=== PATIENT | male | born 1935 | race Caucasian/White ===

== ENCOUNTER 2018-10-04 13:23 | Emergency (ER) | payer MEDICARE ==
[~2018-10-04] VITALS: Ht 177.8 cm; Wt 77.1 kg
--- NOTE | 2018-10-04 13:40 | NUR ---
PT BIB [facility] D/T GLF AND LEFT ARM DEFORMITIES AND PAIN, NO KO, PT IS AOX4, NOT IN RESPIRATORY DISTRESS, V/S STABLE, KEPT RESTED AND COMFORTABLE, AWAITING ER MD PEÑA.
--- NOTE | 2018-10-04 13:46 | NUR ---
DR. SAL AT BEDSIDE FOR EVAL.
[2018-10-04] MEDS ORDERED: TDAP [DIPH/PERTUSSIS/TET] 0.5 ML VIAL IM ONE ×2 (13:55→14:00)
[2018-10-04] MEDS ORDERED: IV NS 0.9% 1,000 ML BAG IV ONE (14:00)
[2018-10-04 14:06] LABS: BASOPHILS # (AUTO) 0.1 /CMM (0.0-0.2); BASOPHILS % (AUTO) 1.1 % (0.0-2.0); EOSINOPHILS % (AUTO) 1.6 % (0.0-6.0); HEMATOCRIT 37 % (39-51); HEMOGLOBIN 11.9 g/dL (13.5-17.5); LYMPHOCYTES # (AUTO) 1.7 /CMM (0.8-4.8); MEAN CORPUSCULAR HGB CONC 32 g/dl (31.0-36.0); MEAN CORPUSCULAR VOLUME 84 fL (80-96); MONOCYTES # (AUTO) 0.6 /CMM (0.1-1.30); MONOCYTES % (AUTO) 5.8 % (2.0-12.0); NEUTROPHILS # (AUTO) 7.1 /CMM (1.8-8.9); NEUTROPHILS % (AUTO) 73.5 % (43.0-81.0); PLATELET COUNT (AUTO) 141 /CMM (150-450); RED BLOOD CELL COUNT(AUTO) 4.43 MIL/uL (4.5-6.0); WHITE BLOOD COUNT (AUTO) 9.7 K/uL (4.3-11.0)
[2018-10-04 14:19] LABS: CALCIUM, SERUM 8.6 mg/dL (8.5-10.1); CARBON DIOXIDE 27 mmol/L (21-32); CHLORIDE 103 mmol/L (98-107); CREATININE 1.5 mg/dL (0.6-1.3); GLUCOSE 147 mg/dL (74-106); POTASSIUM 4.4 mmol/L (3.5-5.1); SODIUM SERUM 139 mmol/L (136-145); UREA NITROGEN, BLOOD 18 mg/dL (7-18)
--- NOTE | 2018-10-04 14:21 | NUR ---
PT IS WHEELED TO RADIOLOGY FOR XRAY AND CT SCAN.
[2018-10-04] MEDS ORDERED: KETOROLAC TROMETHAMINE 15 MG/ML VIAL ONE (14:27)
[2018-10-04] MEDS ORDERED: KETOROLAC TROMETHAMINE INJ 30 MG/ML VIAL IV ONE (14:30)
--- NOTE | 2018-10-04 15:01 | NUR ---
PT IS BACK FROM THE XRAY AND CT SCAN. AWAITING RESULTS.
[2018-10-04] MEDS ORDERED: HYDROMORPHONE 1 MG/1 ML DISP.SYRIN ONE ×3 (16:16→22:29)
[2018-10-04] MEDS ORDERED: HYDROMORPHONE INJ 0.5 MG/0.5 ML SYRINGE IV ONE ×2 (16:30→19:30)
--- NOTE | 2018-10-04 16:31 | NUR ---
PT REFUSED SHOULDER IMMOBILIZER APPLICATION.
--- NOTE | 2018-10-04 18:15 | NUR ---
RECEIVED CALL FROM THE ADMITTING DEPARTMENT AND WAS TOLD THAT [employer]OC[employer]HE[employer] HAS INFORMED US THAT THE ACCEPTING MD HAS BEEN PAGED FOR CALL BACK AND THEY ARE CURRENTLY AWAITING BED ASSIGNMENT FROM [facility]. HOWEVER THEY ARE UNDERGOING SHIFT CHANGE SO THIS WILL CAUSE SOME DELAY
--- NOTE | 2018-10-04 18:50 | NUR ---
PRIMO MARES WORDER AT [facility] TALKING TO THE PATIENT ON THE PHONE AT BS. WAITING FOR THE TRANSFER INFO.
--- NOTE | 2018-10-04 19:15 | NUR ---
ENDORSED TO [facility].
--- NOTE | 2018-10-04 19:16 | NUR ---
REC'D ENDORSEMENT FROM [facility]
--- NOTE | 2018-10-04 19:35 | NUR ---
Patient is resting comfortably in bed with eyes closed. Easily aroused. VSS
--- NOTE | 2018-10-04 20:50 | NUR ---
ASSISTED PT WITH URINAL. CLEANED BLOOD FROM RIGHT HAND WITH NS. REMOVED NC, SATTING 100% ON RA. PT MADE COMFORTABLE
--- NOTE | 2018-10-04 22:14 | NUR ---
CALL FROM [facility], PT ACCEPTED TO [facility] ROOM 4434-[address] VELEZ. # FOR REPORT [phone] opt 1, [phone]. PT AGREES WITH TRANSFER.
[2018-10-04] MEDS ORDERED: HYDROMORPHONE 1 MG/1 ML DISP.SYRIN IM ONE (22:30)
--- NOTE | 2018-10-04 22:30 | NUR ---
[facility], ETA 45 MINUTES.
--- NOTE | 2018-10-04 23:51 | NUR ---
REPORT GIVEN TO [facility] AT [facility] AND EMS TRANSPORT.
--- NOTE | 2018-10-04 23:55 | NUR ---
Patient discharged to [facility] in stable condition. Written and verbal after care instructions given. Patient verbalizes understanding of instruction.
[2018-10-05 00:43] VITALS: BP 118/76
== END 2018-10-05 | disposition short-term general hospital (02) ==
LOC: ER 13:26
DX: S42.332A Displaced oblique fracture of shaft of humerus, left arm, initial encounter for closed fracture (principal); S00.531A Contusion of lip, initial encounter; S60.511A Abrasion of right hand, initial encounter; I48.91 Unspecified atrial fibrillation; W18.49XA Other slipping, tripping and stumbling without falling, initial encounter; Y93.89 Activity, other specified; Y92.89 Other specified places as the place of occurrence of the external cause; Y99.8 Other external cause status
CPT/HCPCS: 36415; 70450; 71045; 72125; 72170; 73020; 73060; 80048; 85025; 85730; 86850; 90471; 90715; 93005; 96372; 96374; 96375; 96376; 99285; A6403; J1170 ×3; J1885; J7030; Z7610